=== PATIENT | female | born 1970 | race Caucasian/White ===

== ENCOUNTER 2022-02-23 11:40 | Emergency (ER) | payer BC, OTHER ==
[2022-02-23 11:57] VITALS: TEMP 98.8
[2022-02-23] MEDS ORDERED: DOXYCYCLINE 100 MG CAP PO STA (13:21)
--- NOTE | 2022-02-23 13:37 | XR ---
EXAMINATION TYPE: XR chest 2V DATE OF EXAM: 02/23/2022 COMPARISON: NONE HISTORY: Shortness of breath TECHNIQUE: Frontal and lateral views of the chest are obtained. FINDINGS: Scattered senescent parenchymal changes noted. No evidence for infiltrate. No evidence for atelectasis. Heart size is stable. Mediastinal structures are stable and grossly unremarkable. No evidence for hilar prominence. Degenerative changes dorsal spine. IMPRESSION: 1. No evidence for acute pulmonary disease.
[2022-02-23] MEDS ORDERED: dexAMETHasone 2 MG TAB PO STA (13:39)
--- NOTE | 2022-02-23 13:48 | ED ---
URI HPI - General Chief Complaint: Upper Respiratory Infection Stated Complaint: poss Covid Time Seen by Provider: 02/23/22 12:56 Source: patient, RN notes reviewed Mode of arrival: ambulatory Limitations: no limitations - History of Present Illness Initial Comments: This is a 51-year-old female who presents to the emergency department for coughing, congestion, and difficulty breathing. States that the symptoms have been present for 4-5 days. She was around a coworker shortly before her symptoms began, who tested positive for COVID-19. She has been using her rescue inhaler with little to no relief. Also notes that her coughing is keeping her awake at night. She prefers natural remedies and has not been taking lvrx-puz-cqakmur cough medication. Denies any fevers, chills, sore throat, chest pain, palpitations, abdominal pain, nausea, vomiting, diarrhea, back pain, or headaches. MD Complaint: cough, nasal congestion Onset/Timin -: days(s) - Related Data Previous Rx's Medication Instructions Recorded Doxycycline [Vibramycin] 100 mg PO BID 7 Days #14 capsule 02/23/22 Fluconazole [Diflucan] 150 mg PO DIRECTED #2 tab 02/23/22 Promethazine/Dextromethorphan 5 ml PO Q4-6H PRN #473 ml 02/23/22 [Promethazine-Dm Syrup] methylPREDNISolone Dose Pack 4 mg PO DIRECTED #21 tab 02/23/22 [Medrol Dose Pack] Allergies Allergy/AdvReac Type Severity Reaction Status Date / Time morphine Allergy Rash/Hives Verified 02/23/22 11:57 Review of Systems ROS Statement: Those systems with pertinent positive or pertinent negative responses have been documented in the HPI. ROS Other: All systems not noted in ROS Statement are negative. Past Medical History Past Medical History: Diabetes Mellitus, Hypertension, Musculoskeletal Disorder History of Any Multi-Drug Resistant Organisms: None Reported Past Surgical History: Bariatric Surgery Past Psychological History: No Psychological Hx Reported Smoking Status: Current some day smoker Past Alcohol Use History: Occasional Past Drug Use History: None Reported General Exam Limitations: no limitations General appearance: alert, in no apparent distress Head exam: Present: atraumatic, normocephalic, normal inspection Respiratory exam: Present: other (course breath sounds bilaterally) Cardiovascular Exam: Present: regular rate, normal rhythm, normal heart sounds. Absent: systolic murmur, diastolic murmur, rubs, gallop, clicks Neurological exam: Present: alert, oriented X3, CN II-XII intact Psychiatric exam: Present: normal affect, normal mood Skin exam: Present: warm, dry, intact, normal color. Absent: rash Course Vital Signs 02/23/22 02/23/22 11:52 14:41 Temperature 98.8 F Pulse Rate 92 93 Respiratory 20 18 Rate Blood Pressure 136/62 134/73 O2 Sat by Pulse 95 97 Oximetry Medical Decision Making - Medical Decision Making This is a 51-year-old female who presents to the emergency department for coughing, congestion, and difficulty breathing. COVID and influenza testing are negative. Chest x-ray obtained and interpreted by myself, this did not reveal any consolidations or infiltrates. She declined a DuoNeb breathing treatment, stating that it makes her feel anxious. She was instead given a dose of Decadron and doxycycline. Given the duration of her symptoms and lack of improvement, will put the patient on a 7 day course of doxycycline with a Medrol Dosepak. Promethazine DM cough syrup was also prescribed. Instructed her to take the first dose at night until she knows how it affects her, as it may be sedating. Rx for diflucan provided due to her tendency to acquire yeast infec tions from antibiotics. She is instructed to follow-up with her primary care provider this week to reevaluate symptoms and ensure that she is improving. Return precautions reviewed in depth, the patient is instructed to return to the emergency department with any new, worsening, or concerning symptoms. Patient verbalized understanding. This case was discussed in detail with the attending ED physician. Presentation, findings, and treatment plan discussed in detail as well. - Lab Data Lab Results 02/23/22 02/23/22 Range/Units 11:59 13:33 Coronavirus (PCR) Not Detected (Not Detectd) Influenza Type A RNA Not Detected (Not Detectd) Influenza Type B (PCR) Not Detected (Not Detectd) - Radiology Data Radiology results: report reviewed, image reviewed Disposition Clinical Impression: Bronchitis Disposition: HOME SELF-CARE Instructions (If sedation given, give patient instructions): Upper Respiratory Infection (ED), Acute Bronchitis (ED) Additional Instructions: Return to the emergency department with any new, worsening, or concerning symptoms. Take the antibiotic as prescribed for 7 days. Take the Medrol Dosepak as prescribed for 6 days. The cough medication can be used every 4-6 hours as needed, take your first dose at night until you know how it affects you, as it may be sedating. Follow up with your primary care provider in 1-2 days. Prescriptions: Fluconazole [Diflucan] 150 mg PO DIRECTED #2 tab methylPREDNISolone Dose Pack [Medrol Dose Pack] 4 mg PO DIRECTED #21 tab Promethazine/Dextromethorphan [Promethazine-Dm Syrup] 5 ml PO Q4-6H PRN #473 ml PRN Reason: Cough Doxycycline [Vibramycin] 100 mg PO BID 7 Days #14 capsule Is patient prescribed a controlled substance at d/c from ED?: No Referrals: Nonstaff,Physician [Primary Care Provider] - 1-2 days
[2022-02-23 14:42] VITALS: BP 134/73; PULSE 93; RESP 18
== END 2022-02-23 14:42 | disposition home or self-care (01) ==
LOC: EC 11:40
DX: U07.1 COVID-19 (principal); I10 Essential (primary) hypertension; E11.9 Type 2 diabetes mellitus without complications; F17.200 Nicotine dependence, unspecified, uncomplicated; Z79.899 Other long term (current) drug therapy
CPT/HCPCS: 87502; 87635; 71046; 99283; J8540

== ENCOUNTER 2023-06-15 19:03 | Emergency (ER) | payer SELFPAY ==
--- NOTE | 2023-06-15 19:32 | ED ---
ENT HPI - General Source: patient, RN notes reviewed Mode of arrival: ambulatory Limitations: no limitations <Sharon Woo - Last Filed: 06/15/23 19:31> <Jolene Jorge - Last Filed: 06/15/23 21:01> - General Stated complaint: left ear ache Time Seen by Provider: 06/15/23 19:31 - History of Present Illness Initial comments: Patient is a 52-year-old female presented to the ER with a chief complaint of left ear ache. She states this been going on for the past 3 weeks and she has tried multiple xlse-kkw-mbahzcz and home remedies without relief. She denies any fevers, chills. She states it wakes her up at night. Does have decreased hearing on that side. (Sharon Woo) 52-year-old female presenting with chief ear pain.. She has had a left-sided earache for the past 3 weeks. She has been trying niow-ljx-zsujzup medications and home remedies. However this has not alleviated her pain. She has no ble eding or discharge from the ear. She does have some decreased hearing on the left side. No fevers. No neck pain. (Jolene Jorge) - Related Data Previous Rx's Medication Instructions Recorded Doxycycline [Vibramycin] 100 mg PO BID 7 Days #14 capsule 02/23/22 Fluconazole [Diflucan] 150 mg PO DIRECTED #2 tab 02/23/22 Promethazine/Dextromethorphan 5 ml PO Q4-6H PRN #473 ml 02/23/22 [Promethazine-Dm Syrup] methylPREDNISolone Dose Pack 4 mg PO DIRECTED #21 tab 02/23/22 [Medrol Dose Pack] Amoxicillin 875 mg PO Q12HR 7 Days #14 tablet 06/15/23 Allergies Allergy/AdvReac Type Severity Reaction Status Date / Time morphine Allergy Rash/Hives Verified 02/23/22 11:57 Review of Systems ROS Other: All systems not noted in ROS Statement are negative. <Sharon Woo - Last Filed: 06/15/23 19:31> ROS Other: All systems not noted in ROS Statement are negative. <Jolene Jorge - Last Filed: 06/15/23 21:01> ROS Statement: Those systems with pertinent positive or pertinent negative responses have been documented in the HPI. Past Medical History Past Medical History: Diabetes Mellitus, Hypertension, Musculoskeletal Disorder History of Any Multi-Drug Resistant Organisms: None Reported Past Surgical History: Bariatric Surgery Past Psychological History: No Psychological Hx Reported Smoking Status: Current some day smoker Past Alcohol Use History: Occasional Past Drug Use History: None Reported <Sharon Woo - Last Filed: 06/15/23 19:31> General Exam <Sharon Woo - Last Filed: 06/15/23 19:31> Limitations: no limitations General appearance: alert, in no apparent distress Head exam: Present: atraumatic, normocephalic Eye exam: Present: normal appearance Expanded Ear exam: Present: normal external inspection TM/Canal exam: Erythema: Left TM (No mastoid erythema or tenderness) Mouth exam: Present: normal external inspection Neck exam: Present: normal inspection Respiratory exam: Absent: respiratory distress Cardiovascular Exam: Present: regular rate Neurological exam: Present: alert, oriented X3 Psychiatric exam: Present: normal affect, normal mood Skin exam: Present: warm, dry <Jolene Jorge - Last Filed: 06/15/23 21:01> - General Exam Comments Initial Comments: Visual Physical Exam Vital signs reviewed General: Well-appearing, nontoxic, no acute distress. Head: Normocephalic, atraumatic Eyes: PERRLA, EOMI ENT: Airway patent Chest: Nonlabored breathing Skin: No visual rash, normal skin tone Neuro: Alert and oriented 3 Musculoskeletal: No gross abnormalities (Sharon Woo) Course Vital Signs 06/15/23 06/15/23 19:45 20:48 Temperature 97.9 F 97.4 F L Pulse Rate 83 67 Respiratory 18 16 Rate Blood Pressure 150/77 146/81 O2 Sat by Pulse 96 98 Oximetry Medical Decision Making <Sharon Woo - Last Filed: 06/15/23 19:31> <Jolene Jorge - Last Filed: 06/15/23 21:01> - Medical Decision Making I performed the quick note portion of this chart. Electronically signed by Sharon Woo PA-C (Sharon Woo) Was pt. sent in by a medical professional or institution ([facility]HELE Calderón, [employer], urgent care, hospital, or shelter...) When possible be specific @ -No Did you speak to anyone other than the patient for history (EMS, parent, family, police, friend...)? What history was obtained from this source @ -No Did you review nursing and triage notes (agree or disagree)? Why? @ -I reviewed and agree with nursing and triage notes Were old charts reviewed (outside hosp., previous admission, EMS record, old EKG, old radiological studies, urgent care reports/EKG's, shelter records)? Report findings @ -No old charts were reviewed Differential Diagnosis (chest pain, altered mental status, abdominal pain women, abdominal pain men, vaginal bleeding, weakness, fever, dyspnea, syncope, heada bronson, dizziness, GI bleed, back pain, seizure, CVA, palpatations, mental health, musculoskeletal)? @ -Differential includes otitis media, otitis externa, mastoiditis, this is not an all-inclusive list EKG interpreted by me (3pts min.). @ -As above X-rays interpreted by me (1pt min.). @ -None done CT interpreted by me (1pt min.). @ -None done U/S interpreted by me (1pt. min.). @ -None done What testing was considered but not performed or refused? (CT, X-rays, U/S, labs)? Why? @ -None What meds were considered but not given or refused? Why? @ -None Did you discuss the management of the patient with other professionals (professionals i.e. , PA, [employer], lab, RT, psych nurse, rn social work, documentation lead, teacher, hydrological technical officer, gearcase assembler)? Give summary @ -No Was smoking cessation discussed for >3mins.? @ -No Was critical care preformed (if so, how long)? @ -No Were there social determinants of health that impacted care today? How? (Homelessness, low income, unemployed, alcoholism, drug addiction, transportation, low edu. Level, literacy, decrease access to med. care, detention, rehab)? @ -No Was there de-escalation of care discussed even if they declined (Discuss DNR or withdrawal of care, Hospice)? DNR status @ -No What co-morbidities impacted this encounter? (DM, HTN, Smoking, COPD, CAD, Cancer, CVA, ARF, Chemo, Hep., AIDS, mental health diagnosis, sleep apnea, morbid obesity)? @ -None Was patient admitted / discharged? Hospital course, mention meds given and route, prescriptions, significant lab abnormalities, going to OR and other pertinent info. @ -52-year-old female presenting with chief complaint of left-sided ear pain. Ongoing for 3 weeks. On examination tympanic membrane is erythematous. There is no mastoid erythema or tenderness or swelling. She is treated with amoxicillin. She is given Diflucan as well. Discharged home. Follow-up with PCP. Report back to ER with any new or worsening symptoms. Discussed return parameters and answered all questions. Patient conveyed verbal understanding and agreed to the plan. I discussed this case in detail with my attending Dr. Cotter Undiagnosed new problem with uncertain prognosis? @ -No Drug Therapy requiring intensive monitoring for toxicity (Heparin, Nitro, Insulin, Cardizem)? @ -No Were any procedures done? @ -No Diagnosis/symptom? @ -Otitis media Acute, or Chronic, or Acute on Chronic? @ -Acute Uncomplicated (without systemic symptoms) or Complicated (systemic symptoms)? @ -Uncomplicated Side effects of treatment? @ -No Exacerbation, Progression, or Severe Exacerbation? @ -No Poses a threat to life or bodily function? How? (Chest pain, [place], [place], pneumonia, PE, COPD, DKA, ARF, appy, cholecystitis, CVA, Diverticulitis, Homicidal, Suicidal, threat to staff... and all critical care pts) @ -No (Jolene Jorge) Disposition <Sharon Woo - Last Filed: 06/15/23 19:31> Is patient prescribed a controlled substance at d/c from ED?: No Time of Disposition: 20:17 <Jolene Jorge - Last Filed: 06/15/23 21:01> Clinical Impression: Otitis media Disposition: HOME SELF-CARE Condition: Good Instructions (If sedation given, give patient instructions): Ear Infection (ED) Additional Instructions: Follow-up with PCP. Report back to ER with any new or worsening symptoms. Take medication as prescribed Prescriptions: Amoxicillin 875 mg PO Q12HR 7 Days #14 tablet Referrals: None,Stated [Primary Care Provider] - 1-2 days
[2023-06-15] MEDS: AMOXICILLIN 875 MG TAB PO STA (20:35)
[2023-06-15] MEDS: PROPARACAINE 0.5% OPHTH DROPS 15 ML BTL LEFT EYE STA (20:40)
[2023-06-15] MEDS: FLUCONAZOLE 150 MG TAB PO STA (20:51)
[2023-06-15 20:59] VITALS: BP 146/81; PULSE 67; RESP 16; TEMP 97.4
== END 2023-06-15 20:58 | disposition home or self-care (01) ==
LOC: EC 19:03
DX: H66.92 Otitis media, unspecified, left ear (principal); E11.9 Type 2 diabetes mellitus without complications; I10 Essential (primary) hypertension; F17.200 Nicotine dependence, unspecified, uncomplicated; Z88.5 Allergy status to narcotic agent
CPT/HCPCS: 99282